=== PATIENT | female | born 1990 | race American Indian/Alaskan Native ===

== ENCOUNTER 2020-03-15 09:19 | Emergency (ER) | payer MEDICAID ==
[2020-03-15] MEDS ORDERED: ACETAMINOPHEN 325 MG TAB ONE (09:32)
[2020-03-15 09:33] VITALS: BP 124/69
[2020-03-15] MEDS ORDERED: ACETAMINOPHEN 325 MG TAB PO ONE (09:33)
[2020-03-15] MEDS ORDERED: SODIUM CHLORIDE 0.9% 1000 ML 1,000 ML IV ONE (09:56)
[2020-03-15] MEDS ORDERED: KETOROLAC 30 MG/1 ML INJ IV ONE (09:56)
[2020-03-15 10:03] LABS: HCG Qualitative,Urine Negative (Negative)
[2020-03-15 10:07] LABS: Bilirubin,Urine NEG (Negative); Blood,Urine NEG (Negative); Color,Urine Yellow (Yellow); Mucus,Urine FEW /HPF
[2020-03-15] MEDS ORDERED: cefTRIAXone/NS 1 GM/50 ML 1 GM/50 ML BAG IV ONE (10:22)
[2020-03-15] MEDS ORDERED: SODIUM CHLORIDE 0.9% 1000 ML IV SOLN IV ONE (10:23)
--- NOTE | 2020-03-15 10:24 | Emergency Department Report ---
ED Fever HPI - General Chief Complaint: Nausea/Vomiting/Diarrhea Stated Complaint: WEAK/VOMIT 3DAYS PUI?: Yes Time Seen by Provider: 03/15/20 09:56 Source: patient - History of Present Illness Initial Comments: Patient is a 29-year-old -[place] female that comes to the ER today complaining of generally just not feeling well over the last several days. She denies fever or chills. She denies cough. Patient denies shortness of breath. She states that she has had nausea and vomiting. Patient denies any diarrhea. Patient denies abdominal pain or dysuria. She denies vaginal discharge. Patient does work several jobs and has had ongoing community exposure to COVID On arrival to triage she was febrile to over 102 degrees. Patient has no headache or nuchal rigidity: No other signs of meningeal irritation. She has no abdominal pain or back pain. She has no diarrhea. She has no dysuria. No concern for STI/no discharge. Abdomen is soft and nontender on exam. No CVA tenderness. Timing/Duration: getting worse Fever Severity/Quality: other Associated Symptoms: denies symptoms, nausea/vomiting ED Review of Systems ROS: Stated complaint: WEAK/VOMIT 3DAYS Other details as noted in HPI Comment: All other systems reviewed and negative ED Past Medical Hx - Past Medical History Previous Medical History?: No - Surgical History Past Surgical History?: Yes Additional Surgical History: C SECTION X 3 - Family History Family history: no significant - Social History Smoking Status: Never Smoker Substance Use Type: Alcohol, Marijuana - Medications Home Medications: Home Medications Medication Instructions Recorded Confirmed Last Taken Type Azithromycin [Zithromax Z-NIYAH] 250 mg PO DAILY #6 tablet 03/15/20 Unknown Rx Ondansetron [Zofran Odt] 4 mg PO Q8HR PRN #10 tab.rapdis 03/15/20 Unknown Rx ED Physical Exam - General Limitations: No Limitations General appearance: alert, in no apparent distress - Head Head exam: Present: atraumatic, normocephalic - Eye Eye exam: Present: normal appearance - ENT ENT exam: Present: mucous membranes moist - Neck Neck exam: Present: normal inspection - Respiratory Respiratory exam: Present: normal lung sounds bilaterally. Absent: respiratory distress - Cardiovascular Cardiovascular Exam: Present: regular rate, normal rhythm. Absent: systolic murmur, diastolic murmur, rubs, gallop - GI/Abdominal GI/Abdominal exam: Present: soft, normal bowel sounds - Extremities Exam Extremities exam: Present: normal inspection - Back Exam Back exam: Present: normal inspection - Neurological Exam Neurological exam: Present: alert, oriented X3 - Psychiatric Psychiatric exam: Present: normal affect, normal mood - Skin Skin exam: Present: warm, dry, intact, normal color. Absent: rash ED Course Vital Signs 03/15/20 09:31 Temperature 102.4 F H Pulse Rate 110 H Respiratory 18 Rate Blood Pressure 124/69 [Left] O2 Sat by Pulse 97 Oximetry ED Medical Decision Making - Lab Data Result diagrams: 03/15/20 10:25 03/15/20 10:25 - Radiology Data Radiology results: report reviewed, image reviewed - Medical Decision Making Vital Signs 03/15/20 09:31 Temperature 102.4 F H Pulse Rate 110 H Respiratory 18 Rate Blood Pressure 124/69 [Left] O2 Sat by Pulse 97 Oximetry Labs 03/15/20 03/15/20 03/15/20 09:36 10:25 10:25 WBC 6.7 RBC 4.42 Hgb 13.2 Hct 37.7 MCV 85 MCH 30 MCHC 35 H RDW 12.8 L Plt Count 180 Lymph % (Auto) 8.9 L [place] % (Auto) 4.8 Eos % (Auto) 0.1 Baso % (Auto) 0.3 Lymph # 0.6 L [place] # 0.3 Eos # 0.0 Baso # 0.0 Seg Neutrophils % 85.9 H Seg Neutrophils # 5.7 Sodium 138 Potassium 3.5 L Chloride 101.9 Carbon Dioxide 22 Anion Gap 18 BUN 8 Creatinine 0.7 Estimated GFR > 60 BUN/Creatinine Ratio 11 Glucose 112 H Calcium 9.2 Total Bilirubin 0.40 AST 21 ALT 23 Alkaline Phosphatase 54 Total Protein 7.4 Albumin 4.2 Albumin/Globulin Ratio 1.3 Lipase 13 Urine Color Yellow Urine Turbidity Clear Urine pH 7.0 Ur Specific [place] 1.026 Urine Protein 100 mg/dl Urine Glucose (UA) Neg Urine Ketones Neg Urine Blood Neg Urine Nitrite Neg Ur Reducing Substances Not Reportable Urine Bilirubin Neg Urine Ictotest Not Reportable Urine Urobilinogen 2.0 Ur Leukocyte Esterase Neg Urine WBC (Auto) 6.0 Urine RBC (Auto) 5.0 U Epithel Cells (Auto) 1.0 Urine Mucus Few Urine HCG, Qual Negative 1125 temp 99.2 111/71 98% HR 89 taking po On reexam patient states that she feels better. This is after getting IV fluids and Zofran. Labs have been noted. UA is negative for UTI. is negative. Chest x-ray shows no consolidation or patchy infiltrate suggestive of bilateral viral pneumonia. Patient is not hypoxic. Her heart rate has come down after receiving IV fluids. Patient is taking p.o. after getting medicated. I had a long discussion with the patient that I am concerned that she may have in fact had a positive COVID test. I told her that we do not do the testing. She is being discharged home with self-isolation. She has been encouraged to wash her hands and avoid the Young in the old. I have told her she should come back to the ER if she has a fever that does not come down with Motrin or Tylenol. Or if she develops severe shortness of breath. Patient verbalizes understanding. I am discharging patient home on azithromycin. She does have cultures pending please call her if they result something not sensitive to a 5-day course of Azo throat. - Differential Diagnosis Sepsis rule out source Critical care attestation.: If time is entered above; I have spent that time in minutes in the direct care of this critically ill patient, excluding procedure time. ED Disposition Clinical Impression: Suspected COVID-19 virus infection, URTI (acute upper respiratory infection), Fever Disposition: DC-01 TO HOME OR SELFCARE Is pt being admited?: No Does the pt Need Aspirin: No Condition: Stable Additional Instructions: self isolate avoid young and old motrin or tylenol for pain or fever hydrate well with water meds as ordered today wear mask wash hand follow up with pcp if symptoms persist referral below outpatient urgent cares can give you official swabs if you desire to get one diet as tolerated start slow and add food Prescriptions: Azithromycin [Zithromax Z-NIYAH] 250 mg PO DAILY #6 tablet Ondansetron [Zofran Odt] 4 mg PO Q8HR PRN #10 tab.rapdis PRN Reason: Vomiting Referrals: MANA BUTLER MD [Primary Care Provider] - 3-5 Days SHANDRA ALFARO MD [Staff Physician] - 3-5 Days Forms: Work/School Release Form(ED) Time of Disposition: 11:27
[2020-03-15 10:55] LABS: Basophils % (Auto) 0.3 % (0.0-1.8); Eosinophils % (Auto) 0.1 % (0.0-4.3); Hematocrit 37.7 % (30.3-42.9); Hemoglobin 13.2 gm/dl (10.1-14.3); Lymphocytes # (Auto) 0.6 K/mm3 (1.2-5.4); Lymphocytes % (Auto) 8.9 % (13.4-35.0); Mean Corpuscular HGB Conc 35 % (30-34); Mean Corpuscular Volume 85 fl (79-97); Monocytes # (Auto) 0.3 K/mm3 (0.0-0.8); Monocytes % (Auto) 4.8 % (0.0-7.3); Platelet Count 180 K/mm3 (140-440); Red Blood Count 4.42 M/mm3 (3.65-5.03); Red Cell Distribution Width 12.8 % (13.2-15.2)
--- NOTE | 2020-03-15 11:13 | XRay Report ---
CHEST 2 VIEWS INDICATION: fever. COMPARISON: none FINDINGS: Support devices: None. Heart: Within normal limits. Lungs: No acute air space or interstitial disease. Pleura: No significant pleural effusion. No pneumothorax. Additional findings: None. IMPRESSION: 1. No acute findings. Signer Name: Ady Smith MD Signed: 03/15/2020 11:09 AM Workstation Name: [id number]
[2020-03-15 11:15] LABS: Alanine Aminotransferase 23 units/L (7-56); Albumin 4.2 g/dL (3.9-5); BUN/Creatinine Ratio 11; Blood Urea Nitrogen 8 mg/dL (7-17); Calcium 9.2 mg/dL (8.4-10.2); Hemolysis Index 0
== END 2020-03-15 11:48 | disposition home or self-care (01) ==
LOC: ED 09:19
DX: J06.9 Acute upper respiratory infection, unspecified (principal); R50.9 Fever, unspecified; F12.90 Cannabis use, unspecified, uncomplicated; Z79.899 Other long term (current) drug therapy; Z98.890 Other specified postprocedural states; Z20.828 Contact with and (suspected) exposure to other viral communicable diseases
CPT/HCPCS: 36415; 71046; 80053; 81001; 81025; 82140; 83690; 85025; 87040; 96361; 96365; 96375; 99284; J0696; J1885; J7030